=== PATIENT | female | born 1980 | race Caucasian/White ===

== ENCOUNTER 2017-05-15 18:52 | Emergency (ER) | payer OTHER ==
[~2017-05-15] VITALS: Ht 167.6 cm; Wt 58.0 kg
[~2017-05-15 18:52] MED LIST: ACET1TAB40 PO; ACET325T33 PO; ALPR0.5T PO; AZIT250T94 PO; IBUP-1542 PO; ONDA4TAB35 PO; PRED20TA PO; TRAM50TA2 PO
[2017-05-15 18:54] VITALS: Ht 167.6 cm; Wt 58.0 kg
[2017-05-15] MEDS ORDERED: METOCLOPRAMIDE 10 MG INJ IV STA (21:29)
[2017-05-15] MEDS ORDERED: DIPHENHYDRAMINE 50 MG INJ IV STA (21:29)
[2017-05-15] MEDS ORDERED: SOD CHLORIDE 0.9% 1,000 ML IV STA (21:29)
[2017-05-15] MEDS ORDERED: KETOROLAC 30 MG INJ IV STA ×2 (21:29→23:39)
--- NOTE | 2017-05-15 23:28 | RADRPT ---
PROCEDURE: Noncontrast CT Head. CLINICAL INDICATION: Headache TECHNIQUE: Noncontrast CT of the head was obtained. The administered radiation dose was CTDI vol = 44.9 mGy, DLP = 720.23 mGy-cm. One or more of the following dose reduction techniques were used: Aut omated exposure control, Adjustment of the mA and/or kV according to patient size, or Use of iterati ve reconstruction technique. COMPARISON: CT brain 12/11/2015 FINDINGS: There is no acute intracranial hemorrhage, midline shift, or mass effect. No extra-axial collection is seen. The cerebral davidson-white matter differentiation appears preserved. Redomonstrated are two ad jacent 2-3 mm rounded calcifications in the right anterior temporal region and a 5 mm cortical based rounded calcification in the parasagittal left frontal parietal region, nonspecific but but suggest raz of sequelae of neurocysticercosis or other post infectious/inflammatory condition, unchanged. Th e cerebral attenuation is otherwise within normal limits. There is mild diffuse cerebral volume loss with mild diffuse cerebral sulcal and ventricular enlargement, stable. The basal cisterns are prese rved. There is mild diffuse cerebellar volume loss, stable. The visualized paranasal sinuses and mas toid air cells are clear. No acute fracture or suspicious osseous lesion is identified. IMPRESSION: 1. No evidence of an acute intracranial process. No significant change when compared to prior CT bra in of 12/11/2015. 2. A few small rounded cerebral calcifications, nonspecific but suggestive of sequelae of neurocysti cercosis or other post infectious/inflammatory condition, stable. RPTAT: [facility] Physician Guillermo Date Time Electronically viewed and signed by Physician Guillermo on 05/15/2017 23:28 RENA/
[2017-05-16] MEDS ORDERED: ONDA4TAB14 PO (00:37)
[2017-05-16] MEDS ORDERED: IBUP400T22 PO (00:37)
--- NOTE | 2017-05-16 00:45 | ERD ---
ER Documentation Chief Complaint Date/Time DATE: 05/16/17 TIME: 00:39 Chief Complaint N/V with HUNTER for 2 days HPI Patient is a 36-year-old female who presents emergency department for concerns of a headache with nausea and vomiting 2 days. Patient states her current headache is a 7 out of 10. Denies any sudden, worsening, 10 out of 10 onset of her pain. Patient describes the pain to be in her bilateral occipital regions. Patient denies any radiation of the pain. Patient denies any fevers, chills, neck pain, neck stiffness, photophobia, phonophobia, blurry vision or loss of consciousness. Patient denies any falls or trauma. Patient states her last menstrual period was 04-11-17. Denies any chest pain, shortness of breath, abdominal pain, diaphoresis. ROS All systems reviewed and are negative except as per history of present illness. Medications Home Meds Active Scripts Ondansetron (Ondansetron Odt) 4 Mg Tab.rapdis, 4 MG PO Q6H Y for NAUSEA AND/OR VOMITING, #10 TAB Prov:MOHAN LEE PA-C 05/16/17 Ibuprofen* (Motrin*) 400 Mg Tab, 400 MG PO Q6, #30 TAB Prov:MOHAN LEE PA-C 05/16/17 Azithromycin* (Zithromax*) 250 Mg Tablet, 250 MG PO .ZPACK DIRECTED, #6 TAB TAKE 500 MG (2 TABS) THE FIRST DAY THEN 250 MG (1 TAB) DAYS 2-5 Prov:BEATA SANTANA MD 12/11/15 Acetaminophen-Codeine* (Acetaminophen-Cod #3*) 300-30 Mg Tab, 1 TAB PO Q4H Y for PAIN, #10 TAB Prov:BEATA SANTANA MD 12/11/15 Ibuprofen* (Motrin*) 600 Mg Tab, 600 MG PO Q6, #16 TAB Prov:BEATA SANTANA MD 12/11/15 Alprazolam* (Xanax*) 0.5 Mg Tab, 0.5 MG PO Q8H Y for ANXIETY, #10 TAB Prov:MONTSE ONOFRE PA-C 09/04/15 Ondansetron Hcl* (Zofran* ODT) 4 mg -ODT Tab.disper, 4 MG PO Q6 Y for NAUSEA AND /OR VOMITING, #10 TAB Prov:KAVON BRAN 05/08/15 Ibuprofen* (Motrin*) 600 Mg Tab, 600 MG PO Q6, #30 TAB Prov:KAVON BRAN 05/08/15 Tramadol HCl (Tramadol HCl) 50 Mg Tab, 50 MG PO Q4 Y for PAIN, #20 TAB Prov:KAVON BRAN 05/08/15 Acetaminophen* (Tylenol*) 325 Mg Tablet, 1 TAB PO Q8 Y for PAIN AND OR ELEVATED TEMP, #20 TAB Prov:MONTSE ONOFRE PA-C 01/24/15 Ibuprofen* (Motrin*) 600 Mg Tab, 600 MG PO Q6, #20 TAB Prov:BEATA SANTANA MD 01/20/15 Prednisone* (Prednisone*) 20 Mg Tab, 40 MG PO DAILY for 5 Days, TAB Prov:BEATA SANTANA MD 01/20/15 Allergies Allergies: Coded Allergies: Penicillins (Verified Allergy, Unknown, 12/11/15) PMhx/Soc Medical and Surgical Hx: pt denies Surgical Hx History of Surgery: No Anesthesia Reaction: No Hx Neurological Disorder: No Hx Respiratory Disorders: No Hx Cardiac Disorders: No Hx Psychiatric Problems: No Hx Miscellaneous Medical Probl: Yes (thyroid ) Hx Alcohol Use: No Hx Substance Use: No Hx Tobacco Use: No Smoking Status: Never smoker Physical Exam Vitals Vital Signs Date Time Temp Pulse Resp B/P Pulse Ox O2 Delivery O2 Flow Rate FiO2 05/16/17 00:50 98.5 78 18 122/71 100 Room Air 05/15/17 18:54 98.3 86 18 132/66 100 Physical Exam GENERAL: Well-developed, well-nourished female. Appears in no acute distress. Speaking in full sentences. HEAD: Normocephalic, atraumatic. EYES: Pupils are equally reactive bilaterally. EOMs grossly intact. No conjunctival erythema. ENT: Moist mucous membranes. No uvula deviation. No kissing tonsils. NECK: Supple. No meningismus. Normal range of motion of the neck. LUNG: Clear to auscultation bilaterally. No rhonchi, wheezing, rales or coarse breath sounds. HEART: Regular rate and rhythm. No murmurs, rubs or gallops. EXTREMITIES: Equal pulses bilaterally. No peripheral clubbing, cyanosis or edema. No unilateral leg swelling. NEUROLOGIC: Alert and oriented x3, cooperative. Mood and affect appropriate to situation. Cranial nerves II through XII are grossly intact. Normal speech. Motor exam: 5/5 strength in upper and lower extremities. Sensory exam: Sensation intact to light touch on all four extremities. Cerebellar function exam: No dysmetria on [id number] test. Steady gait. No pronator drift. SKIN: Normal color. Warm and dry. No rashes or lesions. Results 24 hrs Current Medications Medications (Trade) Dose Ordered Sig/Rajesh Route PRN Reason Start Time Stop Time Status Last Admin Dose Admin Sodium Chloride (NS) 1,000 ml @ 1,000 mls/hr Q1H STAT IV 05/15/17 21:29 05/15/17 22:28 DC 05/15/17 22:12 Metoclopramide HCl (Reglan) 10 mg ONCE STAT IV 05/15/17 21:29 05/15/17 21:30 DC 05/15/17 22:10 Ketorolac Tromethamine (Toradol) 30 mg ONCE STAT IV 05/15/17 21:29 05/15/17 21:39 DC Diphenhydramine HCl (Benadryl) 25 mg ONCE STAT IV 05/15/17 21:29 05/15/17 21:30 DC 05/15/17 22:10 Ketorolac Tromethamine (Toradol) 30 mg ONCE STAT IV 05/15/17 23:39 05/15/17 23:40 DC Procedures/MDM ED COURSE: The patient was stable throughout ED course. I kept the patient and/or family informed of laboratory and diagnostic imaging results throughout the ED course. DIAGNOSTIC IMAGING: Read by radiologist. Patient: SOHEILA MOORE : 1980 Age: 36 Sex: F MR #: [id number] DOS: 05/15/172137 Ordering MD: MOHAN LEE PA-C Location: [facility] Room/Bed: PROCEDURE: Noncontrast CT Head. CLINICAL INDICATION: Headache TECHNIQUE: Noncontrast CT of the head was obtained. The administered radiation dose was CTDI vol = 44.9 mGy, DLP = 720.23 mGy-cm. One or more of the following dose reduction techniques were used: Automated exposure control, Adjustment of the mA and/or kV according to patient size, or Use of iterative reconstruction technique. COMPARISON: CT brain 12/11/2015 FINDINGS: There is no acute intracranial hemorrhage, midline shift, or mass effect. No extra-axial collection is seen. The cerebral davidson-white matter differentiation appears preserved. Redomonstrated are two adjacent 2-3 mm rounded calcifications in the right anterior temporal region and a 5 mm cortical based rounded calcification in the parasagittal left frontal parietal region, nonspecific but but suggestive of sequelae of neurocysticercosis or other post infectious/inflammatory condition, unchanged. The cerebral attenuation is otherwise within normal limits. There is mild diffuse cerebral volume loss with mild diffuse cerebral sulcal and ventricular enlargement, stable. The basal cisterns are preserved. There is mild diffuse cerebellar volume loss, stable. The visualized paranasal sinuses and mastoid air cells are clear. No acute fracture or suspicious osseous lesion is identified. IMPRESSION: 1. No evidence of an acute intracranial process. No significant change when compared to prior CT brain of 12/11/2015. 2. A few small rounded cerebral calcifications, nonspecific but suggestive of sequelae of neurocysticercosis or other post infectious/inflammatory condition, stable. RPTAT: [facility] Physician Guillermo Date Time Electronically viewed and signed by Physician Guillermo on 05/15/2017 23: 28 RC/ CC: MOHAN LEE PA-C . MEDICATIONS GIVEN: IV fluids, Benadryl, Reglan. Refused Toradol after negative CT scan. Patient states she was to take pain medication when she returned home. Patient tolerated medication well with no adverse reactions. MEDICAL DECISION MAKING: Is a 36-year-old female presents with a headache with nausea and vomiting 2 days. Vital signs were reviewed. Patient was afebrile. Patient is not hypoxic. Patient denied any fevers, neck stiffness, jaw claudication, visual changes or LOC. Full neurological exam was normal. CT scan was obtained. CT scan of brain showed no evidence of an acute intracranial process. No significant change when compared to prior CT brain of 12/11/2015. A few small rounded cerebral calcifications, nonspecific but suggestive of sequelae of neurocysticercosis or other post infectious/inflammatory condition, stable. Given these findings, the patient presentation is most consistent with tension headache and neurocysticercosis. Low suspicion for intracranial hemorrhage, meningitis, encephalitis, CO poisoning, temporal arteritis, benign intracranial hypertension, intracranial mass, cluster headache or . PRESCRIPTIONS: Ibuprofen Zofran DISCHARGE: At this time, patient is stable for discharge and outpatient management. She was given a copy of all imaging studies obtained today. I have encouraged the patient to hydrate well. I have instructed the patient to follow-up with his/ her primary care physician in 1-2 days. If symptoms persist, patient may need to see a specialist for further examinations and testing. I have instructed the patient to promptly return to the ER at any time for any new or worsening symptoms including increased increased pain, fever, nausea, vomiting, numbness, neck stiffness, visual changes, weakness or LOC. The patient and/or family expressed understanding of and agreement with this plan. All questions were answered. Home care instructions were provided. Disclaimer: Inadvertent spelling and grammatical errors are likely due to EHR/ dictation software use and do not reflect on the overall quality of patient care. Also, please note that the electronic time recorded on this note does not necessarily reflect the actual time of the patient encounter. Departure Diagnosis: Primary Impression: Headache Headache type: unspecified Headache chronicity pattern: unspecified pattern Intractability: not intractable Qualified Code: R51 - Nonintractable headache, unspecified chronicity pattern, unspecified headache type Condition: Stable Patient Instructions: Self-Care for Headaches Referrals: AVEL DELGADO (PCP) Additional Instructions: Call your primary care doctor TOMORROW for an appointment during the next 1-2 days.See the doctor sooner or return here if your condition worsens before your appointment time. MOHAN LEE PA-C May 16, 2017 00:45
[2017-05-16 00:50] VITALS: BP 122/71; PULSE 78; RESP 18; TEMP 98.5
== END 2017-05-16 00:51 | disposition home or self-care (01) ==
LOC: FTE 18:52
DX: R51 Headache (principal)
CPT/HCPCS: 70450; 96361; 96374; 96375; J1200; J1885; J2765; J7030; Z7502

== ENCOUNTER 2017-09-15 10:59 | Emergency (ER) | END 2017-09-15 16:37 | disposition home or self-care (01) ==

== ENCOUNTER 2018-03-26 18:14 | Emergency (ER) | END 2018-03-26 22:24 | disposition home or self-care (01) ==